=== PATIENT | female | born 1985 | race Caucasian/White ===

== ENCOUNTER 2023-02-14 15:56 | Emergency (ER) | payer OTHER, SELFPAY ==
[2023-02-14 16:15] VITALS: BP 119/83; PULSE 111; RESP 16; TEMP 36.7; O2SAT 100
--- NOTE | 2023-02-14 16:15 | ED.SKABFB ---
HPI - Skin/Abscess/Foreign Bdy General Chief complaint: Skin/Abscess/Foreign Body Stated complaint: skin irritation Source: patient Mode of arrival: ambulatory Limitations: no limitations History of Present Illness HPI narrative: 37 y/o female presented for c/o itchy rash to the left ear, face, and arms. Reports the left ear is swollen. Onset yesterday. Taking Benadryl for symptoms. Denies lip, tongue, or throat swelling, shortness of breath or wheezing. Denies changes to soap, detergent, lotion, or any other exposures. No one else in the house or any contacts with similar symptoms. Denies any other location of rash. Related Data Home Medications Medication Instructions Recorded Confirmed ergocalciferol (vitamin D2) 1,250 1,250 mcg PO WEEKLY 12/13/21 mcg (50,000 unit) capsule fluoxetine 20 mg capsule 20 mg PO DAILY 12/13/21 levothyroxine 175 mcg tablet 175 mcg PO DAILY 12/13/21 meclizine 25 mg tablet 25 mg PO BID PRN 12/13/21 sumatriptan succinate 50 mg tablet See Rx Instructions PO .COMPLEX 12/13/21 fenofibrate nanocrystallized 145 mg PO 02/14/23 mg tablet rimegepant 75 mg disintegrating mg 02/14/23 tablet (Nurtec ODT) topiramate 25 mg tablet mg 02/14/23 Allergies Allergy/AdvReac Type Severity Reaction Status Date / Time No Known Allergies Allergy Verified 02/14/23 16:00 Review of Systems Review of Systems: CONSTITUTIONAL: Denies body aches, fever, chills, or sweats. EYES: Denies visual changes, redness, or discharge. ENT: Denies rhinorrhea, congestion CARDIOVASCULAR: Denies chest pain, palpitations, or edema. RESPIRATORY: Denies cough or dyspnea. GASTROINTESTINAL: Denies abdominal pain, nausea, vomiting, or diarrhea. SKIN: reports rash MUSCULOSKELETAL: Denies back pain, joint pain, or myalgia. NEUROLOGIC: Denies headache, numbness, tingling, or weakness. [facility] Past Medical History Medical History Acquired hypothyroidism Colonoscopy causing post-procedural bleeding Generalized anxiety disorder Hyperlipidemia Major depressive disorder Migraine Post hysterectomy menopause Tonsillectomy planned Vitamin D deficiency Surgical History Surgical History H/O section H/O dilation and curettage Family History Family History Other Anxiety Bipolar disorder Depression Hypertension Migraine Posttraumatic stress disorder Thyroid disorder Social History Social History Social History: former smoker Smoking status: Never smoker Alcohol intake: never Comments At time of signature, I have reviewed and agree with nursing past medical, surgical, social and family history unless otherwise noted. Please see nursing chart for further information. There is no relevant family history pertinent to the presenting complaint Exam Narrative: GENERAL: Well-appearing HEAD: Normocephalic, atraumatic. EYES: conjunctivae clear, and EOMI. ENT: Mucous membranes moist. Oropharynx without edema, erythema or lesions. NECK: Supple. No lymphadenopathy CHEST: Clear to auscultation. HEART: Regular rate and rhythm. SKIN: Warm, dry. Raised skin colored papular rash scattered to head; posterior ears bilaterally, left face and neck, and bilateral forearms. Appears c/w contact dermatitis. No vesicles or drainage, tenderness, purulence or induration. NEURO: Alert and oriented x3. Course Course Emergency Course: Patient is aware of diagnosis, understands and agrees to treatment plan. Anticipatory guidance given. Patient agrees to follow-up as directed and is aware of reasons to seek care at the emergency department. Portions of this record may have been created with voice recognition software Level of Care: Express Care Visit Vital Signs Vital signs:
== END 2023-02-14 16:22 | disposition home or self-care (01) ==
PROVIDERS: Emergency Provider Nurse Practitioner Family; PCP Internal Medicine
DX: L25.9 Unspecified contact dermatitis, unspecified cause (principal); E03.9 Hypothyroidism, unspecified; E78.5 Hyperlipidemia, unspecified
CPT/HCPCS: 99213; G0463